=== PATIENT | female | born 1970 | race Caucasian/White ===

== ENCOUNTER → 2018-04-04 | Outpatient (CLI) | payer OTHER ==
--- NOTE | 2018-04-05 01:52 | MR ---
EXAMINATION TYPE: MR brain and iac wo/w con DATE OF EXAM: 04/04/2018 COMPARISON: None HISTORY: Headaches, Dizzy, Left Sided Hearing Loss, Gadavist 7.5ml TECHNIQUE: Multiplanar, multisequence images of the brain and brainstem is performed without and with IV contras t, utilizing 7.5 mL intravenous Gadavist . FINDINGS: Ventricles and sulci appear normal. There is no mass effect nor midline shift. There is no sign of in tracranial hemorrhage. There is a 4 mm rounded area of fluid signal in the left posterior temporal lo be white matter. The brainstem is intact. Corpus callosum appears normal. Sella turcica appears michele l. The cerebellum appears intact. There is no evidence of cerebral cortical infarct. The internal auditory canals appear normal. There is no evidence of cerebellopontine angle mass. Ther e is symmetric appearance of the acoustic and vestibular nerves. There is normal signal pattern of th e temporal bones. There is no evidence of mastoiditis. The mora appears normal. Contrast images show no pathologic enhancement. Pituitary stalk is in the midline. Pituitary gland ap pears normal. There is normal contrast opacification of the venous sinuses. IMPRESSION: Negative MR scan of the brain. I do not see a cause for hearing loss. No posterior fossa abnormality seen. Small rounded fluid signal focus in the left posterior temporal lobe of doubtful significance.
== END | disposition home or self-care (01) ==
LOC: RADMRIMAIN 15:31
PROVIDERS: ATTEND Otolaryngology
DX: R90.89 Other abnormal findings on diagnostic imaging of central nervous system (principal); H93.3X9 Disorders of unspecified acoustic nerve; H93.19 Tinnitus, unspecified ear; H91.90 Unspecified hearing loss, unspecified ear
CPT/HCPCS: 70553; A9585

== ENCOUNTER → 2019-01-17 | Outpatient (CLI) | payer OTHER ==
--- NOTE | 2019-01-17 11:55 | MR ---
EXAMINATION TYPE: MR brain wo/w con DATE OF EXAM: 01/17/2019 COMPARISON: 04/04/2018 HISTORY: Dizziness, tinnitus TECHNIQUE: Multiplanar, multisequence images of the brain and brainstem is performed without and with IV contras t, utilizing 7.5 mL intravenous Gadavist . FINDINGS: Diffusion weighted images demonstrate no evidence of a recent infarct or other diffusion ab normality. Ventricular system is midline without evidence of displacement. Small focal area of abnorm al signal involving right frontal and left temporal white matter is nonspecific. No midline shift. No pathologic enhancement. Midline structures demonstrate normal morphology. The c raniocervical junction appears within normal limits. Post contrast images demonstrate no abnormal en hancement. The dural venous sinuses appear patent. There are changes of chronic sinusitis. No evidence of cerebellopontine angle mass IMPRESSION: 1. Severe changes of ethmoidal sinusitis. 2. There are 2 small less than 5 mm areas of abnormal signal the white matter which are nonspecific a nd too small to characterize. Migraine headaches, hypertension, remote microvascular ischemia are in the differential diagnosis. Demyelinating process not entirely excluded.
== END | disposition home or self-care (01) ==
LOC: RADMRIMAIN 09:03
PROVIDERS: ATTEND Psychiatry & Neurology Neurology
DX: I67.82 Cerebral ischemia (principal); J32.2 Chronic ethmoidal sinusitis; G43.909 Migraine, unspecified, not intractable, without status migrainosus
CPT/HCPCS: 70553; A9585